=== PATIENT | male | born 1960 | race Caucasian/White ===

== ENCOUNTER → 2017-08-11 | Outpatient (CLI) | payer MEDICARE ==
[~2017-08-11] VITALS: Ht 182.9 cm; Wt 119.3 kg
[~2017-08-11] MED LIST: LIDOCAINE HCL 4% 50 ML SOLUTION TP ONE
[2017-08-11 11:58] VITALS: BP 122/99
== END | disposition home or self-care (01) ==
LOC: HBOWC 10:45
PROVIDERS: ATTEND Podiatrist
DX: L97.811 Non-pressure chronic ulcer of other part of right lower leg limited to breakdown of skin (principal)
CPT/HCPCS: 87070; 87205; 97597

== ENCOUNTER → 2017-08-25 | Outpatient (CLI) | payer MEDICARE ==
[~2017-08-25] MED LIST changes: +LIDOCAINE HCL 2% 5 ML JELLY TP ONE; -LIDOCAINE HCL 4% 50 ML SOLUTION TP ONE
[2017-08-25 11:19] VITALS: BP 133/59
== END | disposition home or self-care (01) ==
LOC: HBOWC 10:22
PROVIDERS: ATTEND Podiatrist
DX: L97.811 Non-pressure chronic ulcer of other part of right lower leg limited to breakdown of skin (principal); L97.821 Non-pressure chronic ulcer of other part of left lower leg limited to breakdown of skin
CPT/HCPCS: 11042

== ENCOUNTER → 2017-09-01 | Outpatient (CLI) | payer MEDICARE ==
[2017-09-01 11:00] VITALS: BP 170/100
== END | disposition home or self-care (01) ==
LOC: HBOWC 10:39
PROVIDERS: ATTEND Podiatrist
DX: L97.811 Non-pressure chronic ulcer of other part of right lower leg limited to breakdown of skin (principal)
CPT/HCPCS: 11042

== ENCOUNTER → 2017-09-08 | Outpatient (CLI) | payer MEDICARE ==
[2017-09-08 11:51] VITALS: BP 152/96
== END | disposition home or self-care (01) ==
LOC: HBOWC 11:18
PROVIDERS: ATTEND Podiatrist
DX: L97.821 Non-pressure chronic ulcer of other part of left lower leg limited to breakdown of skin (principal); L97.811 Non-pressure chronic ulcer of other part of right lower leg limited to breakdown of skin
CPT/HCPCS: 11042

== ENCOUNTER → 2017-09-15 | Outpatient (CLI) | payer MEDICARE ==
[2017-09-15 11:31] VITALS: BP 158/116
[2017-09-15 11:32] VITALS: BP 156/107
== END | disposition home or self-care (01) ==
LOC: HBOWC 10:41
PROVIDERS: ATTEND Podiatrist
DX: L97.811 Non-pressure chronic ulcer of other part of right lower leg limited to breakdown of skin (principal); L97.821 Non-pressure chronic ulcer of other part of left lower leg limited to breakdown of skin
CPT/HCPCS: 11042

== ENCOUNTER → 2017-09-22 | Outpatient (CLI) | payer MEDICARE ==
[2017-09-22 10:30] VITALS: BP 166/95
== END | disposition home or self-care (01) ==
LOC: HBOWC 10:19
PROVIDERS: ATTEND Podiatrist
DX: L97.811 Non-pressure chronic ulcer of other part of right lower leg limited to breakdown of skin (principal)
CPT/HCPCS: 11042

== ENCOUNTER → 2017-10-06 | Outpatient (CLI) | payer MEDICARE ==
[2017-10-06 11:07] VITALS: BP 190/90
== END | disposition home or self-care (01) ==
LOC: HBOWC 10:45
PROVIDERS: ATTEND Podiatrist
DX: L97.811 Non-pressure chronic ulcer of other part of right lower leg limited to breakdown of skin (principal); L97.821 Non-pressure chronic ulcer of other part of left lower leg limited to breakdown of skin
CPT/HCPCS: 11042

== ENCOUNTER → 2017-10-13 | Outpatient (CLI) | payer MEDICARE ==
[2017-10-13 11:46] VITALS: BP 154/90
== END | disposition home or self-care (01) ==
LOC: HBOWC 10:36
PROVIDERS: ATTEND Podiatrist
DX: L97.811 Non-pressure chronic ulcer of other part of right lower leg limited to breakdown of skin (principal); L97.821 Non-pressure chronic ulcer of other part of left lower leg limited to breakdown of skin
CPT/HCPCS: 11042

== ENCOUNTER → 2017-10-20 | Outpatient (CLI) | payer MEDICARE ==
[2017-10-20 10:58] VITALS: BP 136/90
== END | disposition home or self-care (01) ==
LOC: HBOWC 10:43
PROVIDERS: ATTEND Podiatrist
DX: L97.811 Non-pressure chronic ulcer of other part of right lower leg limited to breakdown of skin (principal); L97.821 Non-pressure chronic ulcer of other part of left lower leg limited to breakdown of skin
CPT/HCPCS: 11042

== ENCOUNTER → 2017-10-27 | Outpatient (CLI) | payer MEDICARE ==
[2017-10-27 11:10] VITALS: BP 170/96
== END | disposition home or self-care (01) ==
LOC: HBOWC 10:44
PROVIDERS: ATTEND Podiatrist
DX: L97.811 Non-pressure chronic ulcer of other part of right lower leg limited to breakdown of skin (principal); L97.821 Non-pressure chronic ulcer of other part of left lower leg limited to breakdown of skin
CPT/HCPCS: 11042

== ENCOUNTER → 2017-11-10 | Outpatient (CLI) | payer MEDICARE ==
[~2017-11-10] MED LIST changes: +COLL30OI TP; -LIDOCAINE HCL 2% 5 ML JELLY TP ONE
[2017-11-10 10:52] VITALS: BP 189/92
== END | disposition home or self-care (01) ==
LOC: HBOWC 10:12
PROVIDERS: ATTEND Podiatrist
DX: L97.811 Non-pressure chronic ulcer of other part of right lower leg limited to breakdown of skin (principal)
CPT/HCPCS: 11042

== ENCOUNTER → 2017-11-17 | Outpatient (CLI) | payer MEDICARE ==
[2017-11-17 10:49] VITALS: BP 175/90
== END | disposition home or self-care (01) ==
LOC: HBOWC 10:36
PROVIDERS: ATTEND Podiatrist
DX: L97.811 Non-pressure chronic ulcer of other part of right lower leg limited to breakdown of skin (principal); S90.822D Blister (nonthermal), left foot, subsequent encounter; X58.XXXD Exposure to other specified factors, subsequent encounter
CPT/HCPCS: 11042

== ENCOUNTER → 2017-12-04 | Outpatient (CLI) | payer MEDICARE ==
[2017-12-04 11:40] VITALS: BP 188/90
== END | disposition home or self-care (01) ==
LOC: HBOWC 10:54
PROVIDERS: ATTEND Surgery Plastic and Reconstructive Surgery
DX: T25.222D Burn of second degree of left foot, subsequent encounter (principal); L97.811 Non-pressure chronic ulcer of other part of right lower leg limited to breakdown of skin; T31.0 Burns involving less than 10% of body surface; X16.XXXD Contact with hot heating appliances, radiators and pipes, subsequent encounter
CPT/HCPCS: 11042

== ENCOUNTER → 2017-12-15 | Outpatient (CLI) | payer MEDICARE ==
[2017-12-15 11:14] VITALS: BP 180/90
== END | disposition home or self-care (01) ==
LOC: HBOWC 10:39
PROVIDERS: ATTEND Podiatrist
DX: T25.222D Burn of second degree of left foot, subsequent encounter (principal); L97.521 Non-pressure chronic ulcer of other part of left foot limited to breakdown of skin; T31.0 Burns involving less than 10% of body surface; X16.XXXD Contact with hot heating appliances, radiators and pipes, subsequent encounter
CPT/HCPCS: 11042